=== PATIENT | male | born 1990 | race Two or more races ===

== ENCOUNTER 2022-01-14 10:38 | Emergency (ER) | payer OTHER ==
[~2022-01-14] VITALS: Ht 180.3 cm; Wt 79.4 kg
[~2022-01-14 10:38] MED LIST: TORADOL10 MG PO
== END 2022-01-14 14:52 | disposition home or self-care (01) ==
LOC: ER 10:38
DX: R55 Syncope and collapse (principal); E16.1 Other hypoglycemia